=== PATIENT | male | born 2000 | race Caucasian/White ===

== ENCOUNTER 2024-07-27 17:53 | Emergency (ER) | payer OTHER, SELFPAY ==
--- NOTE | ~2024-07-27 | XR_ITS ---
XR finger 2nd RT min 2V Ordering provider: Mary Morales NP History: . hit with hammer distal aspect swelling and bruising . Comparison: None. FINDINGS: BONES: No acute fracture or dislocation. JOINT SPACES: Normal. SOFT TISSUES: Normal. IMPRESSION: No acute osseous abnormality. Reviewed, dictated and finalized at location A.
[2024-07-27 19:07] VITALS: BP 127/71; PULSE 58; RESP 15; TEMP 36.6; O2SAT 100
--- NOTE | 2024-07-27 19:10 | ED_ITS ---
HPI - Extremity Injury (Upper) General Chief Complaint: Extremity Injury, Upper Stated Complaint: Injured Finger Right Hand Time Seen by Provider: 07/27/24 19:10 Source: patient Mode of arrival: ambulatory Limitations: no limitations History of Present Illness HPI narrative: 23-year-old male presents with abrasion, pain and swelling to right index finger. Patient states he injured finger around 8:00 a.m. today. Hit finger between hammer and what in steak while holding wooden steak to hemorrhoid into the ground. Range of motion and distal neurovascularly intact. No injury to nail. Tetanus up-to-date. All systems reviewed and negative except as noted above. Related Data Home Medications Medication Instructions Recorded Confirmed No Home Medications 07/27/24 07/27/24 Allergies Allergy/AdvReac Type Severity Reaction Status Date / Time No Known Allergies Allergy Unverified 07/27/24 19:35 Review of Systems Review of Systems: CONSTITUTIONAL: Denies fever, chills, or sweats. EYES: Denies visual changes, redness, or discharge. ENT: Denies rhinorrhea, congestion, sore throat, or otalgia. CARDIOVASCULAR: Denies chest pain, palpitations, or edema. RESPIRATORY: Denies cough or dyspnea. GASTROINTESTINAL: Denies abdominal pain, nausea, vomiting, or diarrhea. GENITOURINARY: Denies dysuria or hematuria. SKIN: Denies rash or itching. MUSCULOSKELETAL: Denies back pain, joint pain, or myalgia. Reports pain and sw elling to right index finger. NEUROLOGIC: Denies headache, numbness, or weakness. PSYCHIATRIC: Denies anxiety or depression. All other systems reviewed are negative, except as documented in HPI. PMFSH Comments At time of signature, agree with nursing past medical, surgical, social and family history. There is no relevant family history pertinent to the presenting complaint. Exam Narrative: GENERAL: This is a well-nourished, well-developed patient, in no apparent distress. HEAD: normocephalic, atraumatic. EYES: PERRL. Sclera clear/white. Vision is grossly intact. EARS: External ears normal NOSE: External nose normal NECK: Neck supple, non-tender without lymphadenopathy, masses or thyromegaly. CARDIOVASCULAR: Regular rate and rhythm without murmurs, gallops, or rubs. RESPIRATORY: Clear to auscultation. Breath sounds equal bilaterally. No wheezes, rales, or rhonchi. SKIN: warm, Dry, intact with no suspicious lesions or rash, good texture and turgor. NEURO: awake, alert, and oriented to person, place and time. There were no obvious focal neurologic abnormalities. EXTREMITIES: Mild swelling to distal aspect right index finger. Small abrasion to medial aspect approximately 0.5 cm diameter. Bleeding controlled. Range of motion and distal neurovascularly intact to right index finger. Course Course Level of Care: Express Care Visit Vital Signs Vital signs: Vital Signs Temperature 36.6 C 07/27/24 19:07 Pulse Rate 58 L 07/27/24 19:07 Respiratory Rate 15 07/27/24 19:07 Blood Pressure 127/71 07/27/24 19:07 Pulse Oximetry 100 07/27/24 19:07 Oxygen Delivery Room Air 07/27/24 19:07 Temperature 36.6 C 07/27/24 19:07 Pulse Rate 58 L 07/27/24 19:07 Respiratory Rate 15 07/27/24 19:07 Blood Pressure 127/71 07/27/24 19:07 Pulse Oximetry 100 07/27/24 19:07 Oxygen Delivery Room Air 07/27/24 19:07 Reviewed MDM - Extremity Injury (Upper) MDM Narrative Medical decision making narrative: Patient is aware of diagnosis, understands and agrees to treatment plan. Anticipatory guidance given. Patient agrees to follow-up as directed and is aware of reasons to seek care at the emergency department. Portions of this record may have been created with voice recognition software Discussed x-ray results with patient. Negative for fracture. Band-Aid placed to abrasion of right index finger and placed in finger splint. Differential Diagnosis Differential diagnosis: Likely finger sprain and other (Finger fracture, finger contusion) Imaging Data My impression: Agree with radiologist Radiologist's impression: XR finger 2nd RT min 2V Ordering provider: Mary Morales NP History: . hit with hammer distal aspect swelling and bruising . Comparison: None. FINDINGS: BONES: No acute fracture or dislocation. JOINT SPACES: Normal. SOFT TISSUES: Normal. IMPRESSION: No acute osseous abnormality. Discharge Plan Discharge Clinical Impression: Abrasion of right index finger Qualifiers: Encounter type: initial encounter Qualified Code(s): S60.410A - Abrasion of right index finger, initial encounter Contusion of right index finger Qualifiers: Encounter type: initial encounter Damage to nail status: without damage Qualified Code(s): S60.021A - Contusion of right index finger without damage to nail, initial encounter Patient Disposition: Home, Self-Care Condition: Stable Instructions: Antibiotic Form, Contusion in Adults (ED) Additional Instructions: The x-ray of your right index finger was negative for fracture. Take ibuprofen or Tylenol every 6-8 hours as needed for pain. Apply ice as needed for pain. Elevate when at rest. Keep abrasion clean and dry. Follow-up with your doctor if pain not improving. Prescriptions: No Action No Home Medications Follow-up/Referrals: Jorden,MD Yash [Primary Care Provider] - Time of Disposition: 20:07
== END 2024-07-27 20:09 | disposition home or self-care (01) ==
PROVIDERS: Emergency Provider Nurse Practitioner Family; PCP Internal Medicine
DX: S60.410A Abrasion of right index finger, initial encounter (principal); W27.8XXA Contact with other nonpowered hand tool, initial encounter; S60.021A Contusion of right index finger without damage to nail, initial encounter
CPT/HCPCS: 29130; 73140; 99213; G0463